=== PATIENT | female | born 1980 | race Hispanic/Latino ===

== ENCOUNTER → 2024-12-11 | Outpatient (CLI) | payer OTHER ==
--- NOTE | 2024-12-11 10:09 | HMCIMG ---
UPPER GI SERIES History: GASTROPARESIS; DIAPHRAGMATIC HERNIA W/O OBSTRUCTION OR GANGRENE Comparison: none Contrast: barium sulfate suspension, effervescent granules TECHNIQUE: EXAMINATION IS DONE UNDER FLUOROSCOPIC CONTROL, WITH FLUOROSCOPIC SPOTS OBTAINED. ALSO, OVERHEAD AP, LATERAL AND OBLIQUE VIEWS WERE OBTAINED. Exposure factors: Total fluoro time: 0.4 minutes FINDINGS: Under fluoroscopic evaluation, the patient's esophagus demonstrates normal course, contour and caliber. Normal motility is seen. There is a small hiatal hernia and there is gastroesophageal reflux to the mid esophageal level. The stomach, duodenal bulb, duodenal C-loop, and visualized proximal small bowel show no extrinsic compression, fixed filling defect, ulcerations or abnormalities in mucosal pattern. No tumor is identified. There is no gastric outlet obstruction. There is no extravasation. There is no evidence of malrotation. IMPRESSION: Small hiatal hernia. Gastroesophageal reflux to the mid esophageal level.
== END | disposition home or self-care (01) ==
LOC: RAH 08:26
PROVIDERS: ATTEND Surgery
DX: K21.9 Gastro-esophageal reflux disease without esophagitis (principal); K44.9 Diaphragmatic hernia without obstruction or gangrene; K31.84 Gastroparesis
CPT/HCPCS: 74240

== ENCOUNTER 2025-06-03 21:09 | Emergency (ER) | payer OTHER ==
[~2025-06-03] VITALS: Ht 167.6 cm; Wt 78.9 kg
--- NOTE | 2025-06-03 21:18 | NUR ---
UA CUP PROVIDED
[2025-06-03 22:20] LABS: APPEARANCE,URINE CLEAR (CLEAR); GLUCOSE, URINE (UA) NEGATIVE (NEGATIVE); LEUKOCYTE ESTERASE ,URINE NEGATIVE Leu/uL (NEGATIVE); NITRATE,URINE NEGATIVE (NEGATIVE); OCCULT BLOOD,URINE SMALL (NEGATIVE)
[2025-06-03 22:21] LABS: ADD UA MICROSCOPIC YES
[2025-06-03 22:22] LABS: HCG,QUALITATIVE URINE NEGATIVE (NEGATIVE)
[2025-06-03 22:23] LABS: SQUAMOUS EPITHELIAL CELL,UR FEW /HPF (0-2)
--- NOTE | 2025-06-03 22:29 | NUR ---
PATIENT EDUCATED ON CT WITH CONTRAST AND ASSOCIATED RISK. PATIENT VERBALIZED UNDERSTANDING AND SIGNED CONSENT FORM. CONSENT FORM PLACED IN CHART.
[2025-06-03 22:31] LABS: IMMATURE GRANULOCYTE ABSOLUTE 0.02 K/uL (0-1); NUCLEATED RED BLOOD CELLS 0.0 % (0.0-0.19); PLATELET COUNT (AUTO) 282 K/uL (130-400); RED BLOOD CELL COUNT(AUTO) 4.20 MIL/uL (4.00-5.50); RED CELL DISTRIBUTION WIDTH 13.7 % (11.0-15.5); WHITE BLOOD COUNT (AUTO) 6.9 K/uL (4.8-10.8)
[2025-06-03 22:49] LABS: CREATININE 0.7 mg/dL (0.5-1.0); GLOMERULAR FILTR. RATE CALC 109.0 mL/min (>90); GLUCOSE,RANDOM 93.0 mg/dL (70-105); SODIUM SERUM 139.0 mmol/L (136-145); UREA NITROGEN, BLOOD 10.0 mg/dL (7-18)
[2025-06-03 22:54] LABS: ASPARTATE AMINOTRANSFERASE 14.0 U/L (10-37); TOTAL PROTEIN, SERUM 6.7 g/dL (6.0-8.3)
--- NOTE | 2025-06-03 23:33 | ERN ---
General Chief Complaint: Abdominal Pain Stated Complaint: ABD PAIN Time Seen by MD: 21:39 Source: patient History of Present Illness Initial Comments 45-year-old healthy female comes in with bright red blood per rectum and a feeling of left sided abdominal pain and bloating cramping for 48 hours. She has a history of diverticulitis and recently completed an antibiotic course for it she felt like the antibiotics did not help her diverticulitis in fact they made her feel worse. Allergies: Coded Allergies: morphine (Unverified Allergy, Unknown, 06/03/25) Past Medical History Past Medical History: Diverticulitis, Fibromyalgia, Migraines Past Surgical History: Hysterectomy, Other Surgical History Other: HERNIA Constitutional: (-) chills, (-) diaphoresis, (-) fever, (-) malaise, (-) weakness, (-) other documentation EENTM: (-) eye pain, (-) blurred vision, (-) tearing, (-) double vision, (-) ear pain, (-) ear discharge, (-) nose pain, (-) nose congestion, (-) throat pain, (-) Throat swelling, (-) mouth pain, (-) tooth pain, (-) mouth swelling, (-) other documentation Respiratory: (-) cough, (-) orthopnea, (-) short of breath, (-) stridor, (-) wheezing, (-) other documentation Cardiovascular: (-) chest pain, (-) edema, (-) palpitations, (-) syncope, (-) dyspnea on exertion, (-) other documentation Gastrointestinal/Abdominal: (-) nausea, (-) vomiting, (-) diarrhea, (-) abdominal pain, (-) abdominal distention, (-) constipation, (-) rectal bleeding, (-) dark stool/melena, (-) other documentation Genitourinary: (-) vaginal discharge, (-) vaginal bleeding, (-) dysuria, (-) frequency, (-) hematuria, (-) pain, (-) other documentation Physical Exam General Appearance: (+) no apparent distress Orientation: (+) alert, (+) oriented x 3 Head/Face Trauma: No Eye: bilateral eye normal inspection, bilateral eye PERRL, bilateral eye EOMI Ear, Nose, Throat: (+) hearing grossly normal, (+) normal ENT inspection, (+) moist mucous membraine Neck: (+) normal inspection, (+) supple, (+) full range of motion Respiratory: (+) chest non-tender, (+) lungs clear, (+) well ventilated Heart: (+) regular, (+) no gallop, (+) murmur Vascular: (+) no edema, (+) normal peripheral pulse Gastrointestinal: (+) soft, (+) non-tender, (+) bowel sound present Results Laboratory and Microbiology Lab and Micro Result Laboratory Tests Test 06/03/25 22:11 06/03/25 22:13 Urine Color LIGHT-YELLOW (YELLOW) Urine Appearance CLEAR (CLEAR) Urine pH 6.0 (5.0-8.0) Urine Specific [place] 1.020 (1.001-1.031) Urine Protein NEGATIVE mg/dL (NEGATIVE) Urine Glucose (UA) NEGATIVE mg/dL (NEGATIVE) Urine Ketones NEGATIVE mg/dL (NEGATIVE) Urine Occult Blood SMALL (NEGATIVE) H Urine Nitrate NEGATIVE (NEGATIVE) Urine Bilirubin NEGATIVE mg/dL (NEGATIVE) Urine Urobilinogen 0.2 mg/dL (0.2-1.0) Urine Leukocyte Esterase NEGATIVE Donna/uL Urine RBC 2-5 /HPF (0-1) H Urine WBC 0-1 /HPF (0-1) Urine Squamous Epithelial Cells FEW /HPF (0-2) Urine Bacteria None /HPF (None Seen) Urine HCG, Qualitative NEGATIVE (NEGATIVE) White Blood Count 6.9 K/uL (4.8-10.8) Red Blood Count 4.20 MIL/uL (4.00-5.50) Hemoglobin 13.0 g/dL (12.0-16.0) Hematocrit 39.5 % (36-48) Mean Corpuscular Volume 94.0 fL (79-99) Mean Corpuscular Hemoglobin 31.0 pg (27.0-33.0) Mean Corpuscular Hemoglobin Concent 32.9 g/dL (32.0-36.0) Red Cell Distribution Width 13.7 % (11.0-15.5) Platelet Count 282 K/uL (130-400) Mean Platelet Volume 9.9 fL (7.5-10.5) Immature Granulocyte % (Auto) 0.3 % (0-1) Neutrophils (%) (Auto) 56.4 % (40.0-77.0) Lymphocytes (%) (Auto) 35.2 % (21.0-51.0) Monocytes (%) (Auto) 6.2 % (3.0-13.0) Eosinophils (%) (Auto) 1.6 % (0.0-8.0) Basophils (%) (Auto) 0.3 % (0.0-5.0) Neutrophils # (Auto) 3.9 K/uL (1.8-7.7) Lymphocytes # (Auto) 2.4 K/uL (1.0-4.8) Monocytes # (Auto) 0.4 K/uL (0.1-1.0) Eosinophils # (Auto) 0.11 K/uL (0.00-0.70) Basophils # (Auto) 0.02 K/uL (0.00-0.20) Absolute Immature Granulocyte (auto 0.02 K/uL (0-1) Nucleated Red Blood Cells 0.0 % (0.0-0.19) Sodium Level 139 mmol/L (136-145) Potassium Level 4.5 mmol/L (3.5-5.1) Chloride Level 104 mmol/L (101-111) Carbon Dioxide Level 28 mmol/L (21-32) Blood Urea Nitrogen 10 mg/dL (7-18) Creatinine 0.7 mg/dL (0.5-1.0) Glomerular Filtration Rate Calc 109 mL/min (>90) Random Glucose 93 mg/dL (70-105) Total Calcium 9.0 mg/dL (8.5-10.1) Total Bilirubin 0.2 mg/dL (0.2-1.0) Aspartate Amino Transf (AST/SGOT) 14 U/L (10-37) Alanine Aminotransferase (ALT/SGPT) 13 U/L (12-78) Alkaline Phosphatase 92 U/L (50-136) Total Protein 6.7 g/dL (6.0-8.3) Albumin 3.7 g/dL (3.5-5.0) Procalcitonin < 0.05 ng/mL (0.05-0.5) L MDM MDM: Differential diagnosis: Diverticulosis with the bleeding, hemorrhoids, coagulopathy, arterial venous malformation Rationale: Tests considered and ordered secondary to shared decision making include: Previous outside records reviewed: Old ER visits. Risk of complication and/or morbidity or mortality of patient management: None Medications-Per medication reconciliation Need for hospitalization: Patient does meet criteria for hospitalization. Need for emergency major/minor surgery: No There are no social concerns with this patient. Prescription drug management Prescriptions will include symptomatic care Patient's prior external medical records from other ER visits were reviewed by me as indicated. Prior testing and results from previous visits were reviewed. Prior tests were taken into account with medical decision making and resource utilization, independent historian/historians were used to obtain complete medical history. I independently interpreted the test that were performed, results were reviewed by me and considered findings on radiology if ordered. Patient hemodynamically stable. Laboratory analysis shows a normal red cell mass and a lack of elevated leukocytes. A procalcitonin was also negative. And UA was negative. I discussed with the patient the utility of a CT scan and how it would not elucidate the source of her bleeding. A CT scan just does not have the capability of doing that. What she really needs is a colonoscopy. The complete lack of fever chills nausea vomiting abdominal pain normal white count normal procalcitonin suggests that the patient is bleeding from diverticulosis but she probably does not have active diverticulitis at this time. Patient does have a prescription for antibiotics. I recommend that she talked to her doctor about whether or not she should take those antibiotics. We canceled the CT scan. ED Course Orders Procedure Category Date Status Time Comprehensive LAB 06/03/25 Complete Metabolic Panel 22:03 Cbc With Differential LAB 06/03/25 Complete 22:03 Procalcitonin LAB 06/03/25 Complete 22:03 Urinalysis Profile LAB 06/03/25 Complete 22:03 ,Urine Test LAB 06/03/25 Complete 22:03 Ct Abdomen/Pelvis CT 06/03/25 Logged W/Wo Contras 22:15 Vital Signs Date Time Temp Pulse Resp B/P (MAP) Pulse Ox O2 Delivery O2 Flow Rate FiO2 06/03/25 21:14 97.5 86 18 125/85 98 Room Air DX & DISP Disposition: Discharge Departure Impression: Primary Impression: Diverticulosis large intestine w/o perforation or abscess w/bleeding Condition: Stable Additional Instructions: Yes you have bleeding most likely from your diverticulosis. There are no signs or symptoms of infection or abscess formation. Your laboratory study shows that you are not anemic and you are not having an infection. Usually the bleeding stops over time. I recommend you call your primary care doctor or your GI doctor to ask them about taking another course of oral antibiotics. You may or may not need them. As we discussed the best way to find the source of the bleeding is not a CT scan but is colonoscopy instead. Please follow-up with her primary care doctor or GI physician. Please come back to the emergency room if your unable to eat food or stay well hydrated. Or if you become anemic to the point that you become lightheaded or dizzy. Referrals: HELIO TREVIÑO MD (PCP) MANISH SILVA MD Jun 03, 2025 23:33
[2025-06-03 23:41] VITALS: BP 126/82; PULSE 82; RESP 18; TEMP 97.5; O2SAT 99
== END 2025-06-03 23:46 | disposition home or self-care (01) ==
LOC: EDH 21:09
DX: K57.30 Diverticulosis of large intestine without perforation or abscess without bleeding (principal); M79.7 Fibromyalgia; Z88.5 Allergy status to narcotic agent; Z90.710 Acquired absence of both cervix and uterus
CPT/HCPCS: 36415; 80053; 81001; 81025; 84145; 85025; 99283